=== PATIENT | male | born 1985 | race Caucasian/White ===

== ENCOUNTER 2022-04-05 21:41 | Emergency (ER) | payer OTHER, BC ==
[2022-04-05] MEDS ORDERED: Doxycycline 100 MG Cap PO STA (22:29)
== END 2022-04-05 22:45 | disposition home or self-care (01) ==
LOC: MW.ED 21:41
DX: L03.116 Cellulitis of left lower limb (principal); S80.812A Abrasion, left lower leg, initial encounter; W22.09XA Striking against other stationary object, initial encounter
CPT/HCPCS: 99283; A9270

== ENCOUNTER 2025-08-17 14:11 | Emergency (ER) | payer OTHER, BC ==
[2025-08-17] MEDS: Dexamethasone Sod Phos Preservative Free 10 MG/ML Vial IM ONE (15:15)
[2025-08-17] MEDS: Orphenadrine 60 MG/2 ML Inj IM ONE (15:16)
[2025-08-17] MEDS: Ketorolac 30 MG/ML SDV IM ONE (15:16)
== END 2025-08-17 15:48 | disposition home or self-care (01) ==
LOC: MW.ED 14:11
DX: M54.42 Lumbago with sciatica, left side (principal); Z79.899 Other long term (current) drug therapy; Z75.3 Unavailability and inaccessibility of health-care facilities
CPT/HCPCS: 96372; 99283; A9270; J1100; J1885; J2360